=== PATIENT | male | born 1990 | race Caucasian/White ===

== ENCOUNTER 2024-09-29 15:37 | Emergency (ER) | payer OTHER, SELFPAY ==
--- NOTE | ~2024-09-29 | XR_ITS ---
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 RESULT: Lines, tubes, and devices: None. Lungs and pleura: Clear. Cardiomediastinal silhouette: Normal. Other: No acute osseous or upper abdominal finding. IMPRESSION: No acute cardiopulmonary process. Reviewed, dictated and finalized at location K. ARATION ROOM WORKER
--- NOTE | ~2024-09-29 | CT_ITS ---
EXAMINATION: CT brain wo con DATE: 09/29/2024 17:21 INDICATION: New headache . TECHNIQUE: Computed tomography (CT) of the head was performed without intravenous contrast. The mA wa s adjusted according to patient size. Iterative reconstruction technique was employed. The dose-lengt h product was 605.33 mGy-cm. COMPARISON: None. FINDINGS: No acute intracranial hemorrhage or extra-axial fluid collection. No hydrocephalus, mass, or herniation. No acute ischemic infarct. Unremarkable dural venous sinus attenuation. No acute osseous abnormality. The aerated spaces are clear. IMPRESSION: No acute intracranial process. Reviewed, dictated and finalized at location K. WARE SUPPORT TECHNICIAN
[2024-09-29 15:46] VITALS: BP 150/103; PULSE 105; RESP 19; TEMP 36.6; O2SAT 99
[2024-09-29 15:51] VITALS: O2SAT 97
[2024-09-29 15:53] VITALS: BP 154/95; PULSE 92; RESP 10; O2SAT 95
--- NOTE | 2024-09-29 15:55 | ECG_ITS ---
Test Date: 2024-09-29 16:07:51 Measurements Intervals [place] Rate: 73 P: 64 SD: 157 QRS: 49 QRSD: 86 T: 59 QT: 362 QTc: 401 Interpretive Statements SINUS RHYTHM WITH SINUS ARRHYTHMIA No previous ECG available for comparison Electronically Signed On 09-30-2024 09:57:31 STAFF REPORTER by Dwayne Correia M.D.
[2024-09-29 16:42] LABS: Basophils Absolute Auto 0.1 K/mm3 (0.0-0.1); Basophils Percent Auto 0.6 % (0.2-1.2); Eosinophils Absolute Auto 0.2 K/mm3 (0-0.3); Eosinophils Percent Auto 1.9 % (0-4.4); Hematocrit 39.1 % (42.0-52.0); Hemoglobin 13.4 g/dL (14.0-18.0); Immature Granulocyte Absolute 0.03 K/mm3 (0.00-0.031); Immature Granulocyte Percent A 0.3 % (0-0.5); Lymphocytes Absolute Auto 3.79 K/mm3 (0.9-3.2); Mean Corpuscular HGB Conc 34.3 g/dl (32-36); Mean Corpuscular Hemoglobin 30.2 pg (26-34); Mean Corpuscular Volume 88.3 fl (80-100); Mean Platelet Volume 9.9 fl (7.4-10.4); Monocytes Percent Auto 10.8 % (2.6-8.5); Neutrophils Absolute Auto 3.8 K/mm3 (1.3-6.7); Neutrophils Percent Auto 43.4 % (45.5-73.1); Platelet Count Result 307 k/mm3 (150-375); Red Blood Count 4.43 M/mm3 (4.6-6.20); Red Cell Distribution Width 13.5 % (11.5-14.5); White Blood Count 8.8 K/mm3 (4.5-10.0)
[2024-09-29 16:45] LABS: Influenza A QL RT-PCR Negative (Negative); Influenza B QL RT-PCR Negative (Negative); RSV RNA, RT-PCR Negative (Negative); SARS-CoV-2 RNA PCR Negative (Negative)
[2024-09-29 16:47] LABS: Alanine Aminotransferase 20 U/L (6-50); Albumin Level 4.5 g/dL (3.5-5.1); Alkaline Phosphatase 52 U/L (38-126); Anion Gap 10 mmol/L (4-12); Aspartate Amino Transferase 36 U/L (17-59); Bilirubin,Total 0.4 mg/dL (0.2-1.3); Blood Urea Nitrogen 14 mg/dL (9-20); Calcium 9.6 mg/dL (8.4-10.2); Carbon Dioxide 28 mmol/L (22-30); Chloride 102 mmol/L (98-107); Estimated CRCL calculation 94 ml/min; Estimated Glomerular Filt Rate > 60; Glucose 95 mg/dL (65-110); Sodium 140 mmol/L (137-145)
[2024-09-29] MEDS: hydrOXYzine HCL 25 MG TABLET 50 MG PO (17:27)
[2024-09-29 18:13] LABS: Free T4 Free Thyroxine Reflex 1.24 ng/dL (0.78-2.19)
[2024-09-29 18:23] VITALS: BP 154/95; PULSE 64; RESP 10; O2SAT 98
[2024-09-29 18:41] LABS: T4 Thyroxine 9.17 ug/dL (5.53-11.0)
[2024-09-29] MEDS: KETOROLAC 30 MG/ML VIAL (*BKC) IV PUSH (18:54)
[2024-09-29] MEDS: diphenhydrAMINE HCl INJ 50 MG/ML VIAL 25 MG IV PUSH ×2 (18:54→19:03)
[2024-09-29] MEDS: SODIUM CHLORIDE 0.9% IV 1,000 ML 999 ML IV CONT (18:54)
[2024-09-29] MEDS: PROCHLORPERAZINE EDISYLATE 10 MG/2 ML VIAL IV PUSH (18:55)
[2024-09-29 18:58] VITALS: BP 128/84; PULSE 77; PULSE 87; RESP 14; O2SAT 98
[2024-09-29 19:21] LABS: Total Triiodothyronine (T3) 1.24 NG/ML (0.97-1.69)
--- NOTE | 2024-09-29 19:27 | ED_ITS ---
HPI - SOB/Dyspnea General Chief Complaint: Shortness of Breath/Dyspnea Stated Complaint: dyspnea, pressure in head Time Seen by Provider: 09/29/24 16:08 Source: patient Mode of arrival: ambulatory Limitations: no limitations History of Present Illness HPI Narrative: This is a 34-year-old male, with no significant past medical history, presented to the emergency department complaining of headache, and anxiety for the past month. He states this has gradually worsened over the past 4-5 days. He describes the pain as pressure-like, global without associated weakness, numbness, change /loss of vision or hearing. He denies any known aggravating or alleviating factors. He has no other complaints at this time. Related Data Allergies Allergy/AdvReac Type Severity Reaction Status Date / Time No Known Allergies Allergy Verified 09/29/24 17:26 Review of Systems 2 Review of Systems: All systems reviewed & are unremarkable except as noted in HPI and below PMFSH Past Medical History Medical History No significant past medical history Surgical History Surgical History No significant past surgical history Family History Family History Grandparent Hypertension Family history of elevated blood lipids Family history of malignant neoplasm Family history of lymphoma Father Family history of attention deficit hyperactivity disorder (ADHD) Social History Social History Smoking status: Never smoker Alcohol intake: never Substance use: never Exam 2 Narrative: GENERAL: Well-developed, well-nourished, Appears anxious HEAD: Normocephalic, atraumatic. EYES: PERRLA and EOMI. ENT: Nares clear, no rhinorrhea or epistaxis. Mucous membranes moist. Oropharynx without tonsillar hypertrophy exudate or other lesions. Bilateral TMs pearly ruff nonbulging NECK: Supple. No adenopathy or masses. no thyroid mass. CHEST: Clear to auscultation. No respiratory distress. No wheezes rales or rhonchi HEART: Regular rate and rhythm. No murmur heard. Normal peripheral pulses. ABDOMEN: Soft, nontender, nondistended, normal active bowel sounds. EXTREMITIES: Normal range of motion. No edema. SKIN: Warm, dry, no rash. NEURO: Alert and oriented x3. No focal deficit. Strength 5/5 in all extremities, sensation intact bilaterally, no noted ataxia, cranial nerves 2-12 intact. Fine tremor is noted PSYCH: anxious mood and affect. Course Course Emergency Course: 19:30 - CBC demonstrates mild anemia with hemoglobin of 13.4 but is otherwise unremarkable. Chemistries within normal limits. TSH elevated at 6.3 though free T4, T4 and free T3 are within normal limits. The patient tested negative for COVID, influenza and RSV. EKG unremarkable. Chest x-ray not concerning for acute cardiopulmonary process. CT head not concerning for acute intracranial process. The patient was given Atarax, Toradol, Compazine and Benadryl with initial improvement of anxiety, though mild aggravation by Compazine. This improved with a total of 50 mg diphenhydramine. I suspect subclinical hypothyroidism, anxiety and headache is the cause of the patient's symptoms. Will discharge with Atarax, nausea medications and recommendation for primary care follow-up. I discussed the findings and recommendations with The patient. Discussed return and emergency precautions including signs/symptoms of focal neural deficit and intracranial hemorrhage. The patient voiced understanding and agreement with the plan. All questions answered to his satisfaction. Vital Signs Vital signs: Vital Signs Temperature 97.8 F 09/29/24 15:46 Pulse Rate 105 H 09/29/24 15:46 Respiratory Rate 19 09/29/24 15:46 Blood Pressure 150/103 H 09/29/24 15:46 Pulse Oximetry 99 09/29/24 15:46 Oxygen Delivery Room Air 09/29/24 15:46 Temperature 97.8 F 09/29/24 15:46 Pulse Rate 87 09/29/24 18:58 Respiratory Rate 14 09/29/24 18:58 Blood Pressure 128/84 09/29/24 18:58 Pulse Oximetry 98 09/29/24 18:58 Oxygen Delivery Room Air 09/29/24 18:58 MDM - SOB/Dyspnea MDM Narrative Medical decision making narrative: plan: Imaging, EKG, angiolytics, pain control, labs, reassess Differential Diagnosis Differential diagnosis: Likely other ( intracranial hemorrhage, intracranial mass, anxiety, COVID, pneumonia, influenza, hypothyroidism, hyperthyroidism, metabolic abnormality, other) Lab Data 09/29/24 16:04 09/29/24 16:04 Labs: Lab Results 09/29/24 Range/Units 16:04 WBC 8.8 (4.5-10.0) K/mm3 RBC 4.43 L (4.6-6.20) M/mm3 Hgb 13.4 L (14.0-18.0) g/dL Hct 39.1 L (42.0-52.0) % MCV 88.3 (80-100) fl MCH 30.2 (26-34) pg MCHC 34.3 (32-36) g/dl RDW 13.5 (11.5-14.5) % Plt Count 307 (150-375) k/mm3 MPV 9.9 (7.4-10.4) fl Immature Gran % (Auto) 0.3 (0-0.5) % Neut % (Auto) 43.4 L (45.5-73.1) % Lymph % (Auto) 43.0 (18.3-44.2) % [place] % (Auto) 10.8 H (2.6-8.5) % Eos % (Auto) 1.9 (0-4.4) % Baso % (Auto) 0.6 (0.2-1.2) % Lymph # (Auto) 3.79 H (0.9-3.2) K/mm3 [place] # (Auto) 1.0 H (0.1-0.6) K/mm3 Eos # (Auto) 0.2 (0-0.3) K/mm3 Baso # (Auto) 0.1 (0.0-0.1) K/mm3 Abs Immat Gran (auto) 0.03 (0.00-0.031) K/mm3 Absolute Neuts (auto) 3.8 (1.3-6.7) K/mm3 Absolute Nucleated RBC 0.000 (0.0-0.012) K/mm3 Nucleated RBC % 0.0 (0.0-0.2) % Sodium 140 (137-145) mmol/L Potassium 4.0 (3.4-5.0) mmol/L Chloride 102 (98-107) mmol/L Carbon Dioxide 28 (22-30) mmol/L Anion Gap 10 (4-12) mmol/L BUN 14 (9-20) mg/dL Creatinine 1.02 (0.7-1.3) mg/dL Estim Creat Clear Calc 94 ml/min Estimated GFR > 60 (59 - ) Glucose 95 (65-110) mg/dL Calcium 9.6 (8.4-10.2) mg/dL Total Bilirubin 0.4 (0.2-1.3) mg/dL AST 36 (17-59) U/L ALT 20 (6-50) U/L Alkaline Phosphatase 52 (38-126) U/L Total Protein 8.0 (6.3-8.2) g/dL Albumin 4.5 (3.5-5.1) g/dL TSH (Reflex) 6.310 H (0.465-4.68) uIU/mL Free T4 1.24 (0.78-2.19) ng/dL Thyroxine (T4) 9.17 (5.53-11.0) ug/dL Total T3 1.24 (0.97-1.69) NG/ML Influenza A (RT-PCR) Negative (Negative) Influenza B (RT-PCR) Negative (Negative) RSV (RT-PCR) Negative (Negative) SARS-CoV-2 RNA (RT-PCR) Negative (Negative) ECG Data EKG #1: Attestation: I personally reviewed and interpreted this ECG as follows: ECG completion date: 09/29/24 ECG completion time: 16:07 Prior ECG tracings: not available for review Interpretation: sinus rhythm, rate 73, normal axis, no ST segment elevations or T-wave inversions concerning for ischemia, normal intervals with QTC of 401. Discharge Plan Discharge Clinical Impression: Anxiety Hypothyroidism Qualifiers: Hypothyroidism type: other Qualified Code(s): E03.8 - Other specified hypothyroidism Headache Qualifiers: Headache type: unspecified Headache chronicity pattern: acute headache I ntractability: not intractable Qualified Code(s): R51.9 - Headache, unspecified Patient Disposition: Home, Self-Care Condition: Stable Instructions: Antibiotic Form, Acute Headache (ED), Anxiety (ED) Additional Instructions: You were seen in the emergency department. A CT scan of the head was not concerning for bleeding or mass of the brain. Your labs were not concerning for liver or kidney injury. Your TSH is slightly elevated at 6.3 though your T4 and T3 is normal. I recommend following up your primary care doctor for further investigation for hypothyroidism. If you develop weakness/numbness, change/loss of vision/hearing, or if you have other emergent concerns for life, limb, or eyesight, return to the emergency department. Patient Language: Frisian Prescriptions: New hydroxyzine HCl 50 mg tablet 50 mg PO TID PRN (Reason: anxiety) Qty: 30 0RF ondansetron 4 mg tablet,disintegrating 4 mg PO Q8H PRN (Reason: nausea and vomiting) Qty: 12 0RF Follow-up/Referrals: PHYSICIAN NOT ON STAFF,NONSTAFF [Primary Care Provider] - 2 Weeks Time of Disposition: 19:30
--- OUTSIDE RECORDS SUMMARY | 2024-10-04 09:11 | XMS_ITS | Clinical Summary ---
Author Organization [facility] Address [address] [place] [address]. [place], [place] [id number] [place] [id number] Care Team Providers Care Director Social Name Role Phone Unavailable Primary Care Provider Unavailabl e Social History Tobacco Use Types Packs/Day Years Used Date Smoking Tobacco: Never Assessed Sex and Gender Information Value Date Recorded Sex Assigned at Not on file Legal Sex Male 7:41 PM CDT Gender Identity Not on file Sexual Orientation Not on file Plan of Treatment Health Maintenance Due Date Last Done Comments Annual Physical 02/14/1991 Hepatitis C 02/14/2006 DTaP, Tdap and Td Vaccines ( 1 - Tdap) 02/14/2007 Hepatitis B Vaccines (1 of 3 - 19+ 3-dose series) 02/14/2007 COVID-19 Vaccine (2023-2 5 season) 2024 Influenza Adult (#1) 2024 HPV Vaccines Aged Out No longer eligi ble based on patient's age to complete this topic Meningococcal Vaccine Aged Out No danielle get eligible based on patient's age to complete this topic Pneumococcal Vaccine: Pediat rics (0 to 5 Years) and At-Risk Patients (6 to 64 Years) Aged Out No longer eligible b ased on patient's age to complete this topic RSV Immunizations Under 20 Months Aged Out No longer eligible based on patient's age to complete this topic
== END 2024-09-29 20:02 | disposition home or self-care (01) ==
PROVIDERS: Emergency Provider Preventive Medicine Aerospace Medicine
DX: R51.9 Headache, unspecified (principal); F41.9 Anxiety disorder, unspecified; E03.8 Other specified hypothyroidism; Z20.822 Contact with and (suspected) exposure to COVID-19
CPT/HCPCS: 36415; 70450; 71046; 80053; 84436; 84439; 84443; 84480; 85025; 87637; 93005; 96361; 96374; 96375; 99284; A9270; J0780; J1200; J1885; J7030

== ENCOUNTER 2025-04-24 18:47 | Observation (INO) | payer OTHER, SELFPAY ==
[2025-04-24] VITALS (20 sets, daily range): BP systolic 141–151; BP diastolic 89–101; PULSE 97–133; RESP 11–29; TEMP 36.3; O2SAT 96–98
--- NOTE | ~2025-04-24 | XR_ITS ---
CHEST RADIOGRAPH, PA AND LATERAL CLINICAL HISTORY: cp . COMPARISON: 09/29/2024 TECHNIQUE: PA and lateral views of the chest. FINDINGS The cardiomediastinal silhouette is unremarkable. The lungs are clear. IMPRESSION: No focal infiltrate or effusion. Reviewed, dictated and finalized at location A.
--- OUTSIDE RECORDS SUMMARY | 2025-04-24 18:49 | XMS_ITS | Clinical Summary ---
Author Organization [facility] Address [address] [place] [id number] Care Team Providers Care Insurance Professional Name Role Phone Unavailable Primary Care Provider [...] of 3 - 19+ 3-dose series) 02/14/2007 HPV Vaccines (1 - 3-dose SCD M series) 02/14/2015 COVID-19 Vaccine ( - 2023-2 5 season) 2024 Meningococcal B Vaccine Aged Out No l onger eligible based on patient's age to complete this topic Meningococcal Vaccine Aged Out No danielle get eligible based on patient's age to complete this topic Pneumococcal Vaccine: Pediat rics (0 to 5 Years) and At-Risk Patients (6 to 49 Years) Aged Out No longer eligible b ased on patient's age to complete this topic RSV Immunizations Under 20 Months Aged Out No longer eligible based on patient's age to complete this topic
--- NOTE | 2025-04-24 18:51 | ECG_ITS ---
Test Date: 2025-04-24 18:55:54 Measurements Intervals [place] Rate: 117 P: 66 [place]: 151 QRS: 58 QRSD: 86 T: 69 QT: 341 QTc: 477 Interpretive Statements SINUS TACHYCARDIA NONSPECIFIC ST & T-WAVE ABNORMALITY- DIFFUSE LEADS BASELINE ARTIFACT- I, II, III, AVR, AVL, AVF, V1-V6 ABNORMAL ECG Compared to ECG 09/29/2024 16:07:51 HEART RATE HAS INCREASED Electronically Signed On 04-24-2025 18:56:50 CDT by Gianfranco Vargas D.O.
--- NOTE | 2025-04-24 19:00 | ED.CHESTPAIN ---
HPI - Chest Pain General Chief Complaint: Chest Pain <Karla Perry APRN - Last Filed: 04/24/25 19:03> Stated Complaint: chest pain <Karla Perry APRN - Last Filed: 04/24/25 19:03> Time Seen by Provider: 04/24/25 19:00 <Karla Perry APRN - Last Filed: 04/24/25 19:03> Focused HPI: Pt is a 35-year-old male who presents to the ER with complaints of chest pain. He reports his pain started a while ago, but it has been worsening. Patient reports he has been unable to sleep for the past 5 days. He endorses a history of arrhythmias, bigeminy, anxiety, depression, and drug abuse. Patient reports he takes methadone every day. He also endorses shortness of breath. Patient denies back pain, recent fevers, abdominal pain or urinary symptoms. He denies any alcohol or illicit drug use. GENERAL: Ill-appearing, well-nourished, and in acute distress. HEAD: Normocephalic, atraumatic. CHEST: Clear to auscultation. ?No respiratory distress. HEART: Tachycardia, pallor. NEURO: ?Alert and oriented x3. Patient screened in triage and initial orders placed.? ?Additional care and disposition to be based upon?diagnostic testing and treatment. <Karla Perry APRN - Last Filed: 04/24/25 19:03> History of Present Illness HPI narrative: Agree with the HPI above and would like that collateral formation that patient is on chronic benzodiazepine therapy 2 mg clonazepam several times a day but has been out of this medication for numerous days prior to his symptom onset. Symptoms sound consistent with benzodiazepine washout or withdrawal. Does not endorse any alcohol use or history of alcohol withdrawal or feeling like this in the past. <Brady Sarkar MD - Last Filed: 04/25/25 06:41> Related Data Home Medications: Home Medications ?Medication ?Instructions ?Recorded ?Confirmed ?Last Taken ?Type clonazepam 1 mg tablet 1 mg PO Q12H 04/25/25 04/25/25 Unknown History escitalopram oxalate 10 mg tablet 10 mg PO DAILY 04/25/25 04/25/25 Unknown History methadone 10 mg/5 mL oral solution 100 mg PO DAILY 04/25/25 04/25/25 04/24/25 History metoprolol tartrate 25 mg tablet 25 mg PO Q12H 04/25/25 04/25/25 Unknown History <Karla Perry APRN - Last Filed: 04/24/25 19:03> Allergies/Adverse Reactions: Allergies Allergy/AdvReac Type Severity Reaction Status Date / Time diphenhydramine (From AdvReac Palpitation Verified 04/24/25 18:50 Benadryl) s <Karla Perry APRN - Last Filed: 04/24/25 19:03> Review of Systems Review of Systems: As reviewed above in HPI <Brady Sarkar MD - Last Filed: 04/25/25 06:41> PMFSH Past Medical History Medical History: Medical History No significant past medical history <Karla Perry APRN - Last Filed: 04/24/25 19:03> Surgical History Surgical History: Surgical History No significant past surgical history <Karla Perry APRN - Last Filed: 04/24/25 19:03> Family History Family History: Family History Grandparent Hypertension Family history of elevated blood lipids Family history of malignant neoplasm Family history of lymphoma Father Family history of attention deficit hyperactivity disorder (ADHD) <Karla Perry APRN - Last Filed: 04/24/25 19:03> Social History Social History: Social History Smoking status: Never smoker Alcohol intake: never Substance use: former Substance use type: former substance user, heroin, opiates, painkillers and IV drugs Lack of Transportation: No Lack of Food: Never True Current Housing: I Have Housing Concerned About Future Housing: No Difficulty Paying Gas/Electric Bills: No Difficulty Paying for Meds: No Currently Unemployed: No Education: Associate Degree Difficulty w/ Childcare or Family Care: No Spiritual care concerns: Yes <Karla Perry APRN - Last Filed: 04/24/25 19:03> Exam Narrative: GENERAL: Ill-appearing, tremulous and visibly shaking, tachycardic and tachypneic HEAD: [Normocephalic, atraumatic.] EYES: [PERRLA and EOMI.] ENT: Nares clear, no rhinorrhea or epistaxis. Mucous membranes moist. NECK: Supple. CHEST: Clear to auscultation, mildly tachypneic but converses in full sentences HEART: Tachycardic rate but regular rhythm. No murmur heard. [Normal peripheral pulses.] ABDOMEN: [Soft, nondistended], [nontender], [No rigidity or guarding] EXTREMITIES: Normal range of motion. [No edema.] SKIN: Warm, dry, no rash. NEURO: [No focal deficits]. Alert and oriented [x3.] PSYCH: [Normal mood and affect.] <Brady Sarkar MD - Last Filed: 04/25/25 06:41> Course Vital Signs Vital signs: Vital Signs Temperature 36.3 C L 04/24/25 18:47 Pulse Rate 112 H 04/24/25 18:47 Respiratory Rate 16 04/24/25 18:47 Blood Pressure 150/101 H 04/24/25 18:47 Pulse Oximetry 97 04/24/25 18:47 Temperature 36.1 C L 04/25/25 05:12 Pulse Rate 107 H 04/25/25 05:12 Respiratory Rate 14 04/25/25 05:12 Blood Pressure 130/88 04/25/25 05:12 Pulse Oximetry 98 04/25/25 05:12 Oxygen Delivery Room Air 04/25/25 03:48 <Karla Perry APRN - Last Filed: 04/24/25 19:03> Vital Signs Temperature 36.3 C L 04/24/25 18:47 Pulse Rate 112 H 04/24/25 18:47 Respiratory Rate 16 04/24/25 18:47 Blood Pressure 150/101 H 04/24/25 18:47 Pulse Oximetry 97 04/24/25 18:47 Temperature 36.1 C L 04/25/25 05:12 Pulse Rate 107 H 08/14/25 05:12 Respiratory Rate 14 04/25/25 05:12 Blood Pressure 130/88 04/25/25 05:12 Pulse Oximetry 98 04/25/25 05:12 Oxygen Delivery Room Air 04/25/25 03:48 <Brady Sarkar MD - Last Filed: 04/25/25 06:41> MDM - Chest Pain MDM Narrative Medical decision making narrative: Pt is a 35-year-old male who presents to the ER with complaints of chest pain. He reports his pain started a while ago, but it has been worsening. Patient reports he has been unable to sleep for the past 5 days. He endorses a history of arrhythmias, bigeminy, anxiety, depression, and drug abuse. Patient reports he takes methadone every day. He also endorses shortness of breath. Patient denies back pain, recent fevers, abdominal pain or urinary symptoms. He denies any alcohol or illicit drug use. Patient presents with elevated blood pressure tachycardia and tachypnea with tremulousness and signs and symptoms consistent with benzodiazepine withdrawal. Patient states he is on chronic benzodiazepine therapy but has been out of it for several days as he lost his prescription and he tried calling his regular doctor get a refill but this was not able to be done. Patient denies any new medication changes otherwise. He is on daily methadone. Patient was given a trial dose of 2 mg of IV Ativan all his symptoms have resolved as well as improvement in vital signs. Hemodynamically stable. Cardiac workup underway which is unrevealing with negative troponins, EKG without any concerning findings, electrolytes are normal. Patient had a recurrence of his symptoms and had elevated blood pressure, heart rate and tachypnea and felt tremulous again visibly shaky and evaluation. He was given a 2nd dose of 2 mg of IV Ativan and had symptomatic improvement. Discussed the case with the hospitalist who recommended oral dose of his home medications as well for longer-acting affect and he was accepted to the hospital for symptomatic benzodiazepine washout and withdrawal symptoms. Patient and family comfortable with the plan and patient admitted to a monitored bed at this time. <Brady Sarkar MD - Last Filed: 04/25/25 06:41> Medical Records Data Attestation: I reviewed the patient's medical records. <Brady Sarkar MD - Last Filed: 04/25/25 06:41> Lab Data Attestation: I reviewed the patient's lab results. <Brady Sarkar MD - Last Filed: 04/25/25 06:41> Result diagrams: 04/24/25 19:38 04/24/25 19:38 <Karla Perry APRN - Last Filed: 04/24/25 19:03> Labs: Lab Results 04/24/25 04/24/25 04/24/25 Range/Units 19:38 19:46 22:13 WBC 10.9 H (4.5-10.0) K/mm3 RBC 4.62 (4.6-6.20) M/mm3 Hgb 13.5 L (14.0-18.0) g/dL Hct 40.0 L (42.0-52.0) % MCV 86.6 (80-100) fl MCH 29.2 (26-34) pg MCHC 33.8 (32-36) g/dl RDW 14.1 (11.5-14.5) % Plt Count 355 (150-375) k/mm3 MPV 9.8 (7.4-10.4) fl Immature Gran % (Auto) 0.4 (0-0.5) % Neut % (Auto) 81.5 H (45.5-73.1) % Lymph % (Auto) 13.8 L (18.3-44.2) % [place] % (Auto) 3.9 (2.6-8.5) % Eos % (Auto) 0.0 (0-4.4) % Baso % (Auto) 0.4 (0.2-1.2) % Lymph # (Auto) 1.51 (0.9-3.2) K/mm3 [place] # (Auto) 0.4 (0.1-0.6) K/mm3 Eos # (Auto) 0.0 (0-0.3) K/mm3 Baso # (Auto) 0.0 (0.0-0.1) K/mm3 Abs Immat Gran (auto) 0.04 H (0.00-0.031) K/mm3 Absolute Neuts (auto) 8.9 H (1.3-6.7) K/mm3 Absolute Nucleated RBC 0.000 (0.0-0.012) K/mm3 Nucleated RBC % 0.0 (0.0-0.2) % PT 14.4 (11.1-14.7) Seconds INR 1.1 APTT 29.6 (22.3-36.8) Seconds Sodium 135 L (137-145) mmol/L Potassium 3.7 (3.4-5.0) mmol/L Chloride 97 L (98-107) mmol/L Carbon Dioxide 21 L (22-30) mmol/L Anion Gap 17 H (4-12) mmol/L BUN 11 (9-20) mg/dL Creatinine 1.00 (0.7-1.3) mg/dL Estim Creat Clear Calc 95 ml/min Estimated GFR > 60 (59 - ) Glucose 132 H (65-110) mg/dL Calcium 9.8 (8.4-10.2) mg/dL Total Bilirubin 0.5 (0.2-1.3) mg/dL AST 30 (17-59) U/L ALT 30 (6-50) U/L Alkaline Phosphatase 56 (38-126) U/L Troponin I < 0.012 < 0.012 (0.000-0.034) ng/mL Total Protein 9.2 H (6.3-8.2) g/dL Albumin 5.2 H (3.5-5.1) g/dL Lipase 73 (23-300) U/L TSH (Reflex) 1.510 (0.465-4.68) uIU/mL Urine Color Yellow (Yellow) Urine Appearance Clear (Clear) Urine pH 5.5 (5.0-9.0) Ur Specific [place] 1.017 (1.001-1.035) Urine Protein Trace (Negative) mg/dL Urine Glucose (UA) Negative (Negative) mg/dL Urine Ketones 3+ H (Negative) mg/dL Ur Blood (Man) 1+ H (Negative) Urine Nitrate Negative (Negative) Urine Bilirubin Negative (Negative) Urine Urobilinogen 0.2 (<2.0) mg/dL Leukocyte Esterase Rfl Negative (Negative) SY/UL Urine RBC 0-2 (0-2) /hpf Urine WBC 0-5 (0-3) /hpf Ur Squamous Epith Cells None seen (Few) /hpf Urine Bacteria None seen /hpf Urine Casts 3-5 <Karlacourtney Perry, INFORMATION CLERK [employer] - Last Filed: 04/24/25 19:03> Lab Results 04/24/25 04/24/25 04/24/25 Range/Units 19:38 19:46 22:13 WBC 10.9 H (4.5-10.0) K/mm3 RBC 4.62 (4.6-6.20) M/mm3 Hgb 13.5 L (14.0-18.0) g/dL Hct 40.0 L (42.0-52.0) % MCV 86.6 (80-100) fl MCH 29.2 (26-34) pg MCHC 33.8 (32-36) g/dl RDW 14.1 (11.5-14.5) % Plt Count 355 (150-375) k/mm3 MPV 9.8 (7.4-10.4) fl Immature Gran % (Auto) 0.4 (0-0.5) % Neut % (Auto) 81.5 H (45.5-73.1) % Lymph % (Auto) 13.8 L (18.3-44.2) % [place] % (Auto) 3.9 (2.6-8.5) % Eos % (Auto) 0.0 (0-4.4) % Baso % (Auto) 0.4 (0.2-1.2) % Lymph # (Auto) 1.51 (0.9-3.2) K/mm3 [place] # (Auto) 0.4 (0.1-0.6) K/mm3 Eos # (Auto) 0.0 (0-0.3) K/mm3 Baso # (Auto) 0.0 (0.0-0.1) K/mm3 Abs Immat Gran (auto) 0.04 H (0.00-0.031) K/mm3 Absolute Neuts (auto) 8.9 H (1.3-6.7) K/mm3 Absolute Nucleated RBC 0.000 (0.0-0.012) K/mm3 Nucleated RBC % 0.0 (0.0-0.2) % PT 14.4 (11.1-14.7) Seconds INR 1.1 APTT 29.6 (22.3-36.8) Seconds Sodium 135 L (137-145) mmol/L Potassium 3.7 (3.4-5.0) mmol/L Chloride 97 L (98-107) mmol/L Carbon Dioxide 21 L (22-30) mmol/L Anion Gap 17 H (4-12) mmol/L BUN 11 (9-20) mg/dL Creatinine 1.00 (0.7-1.3) mg/dL Estim Creat Clear Calc 95 ml/min Estimated GFR > 60 (59 - ) Glucose 132 H (65-110) mg/dL Calcium 9.8 (8.4-10.2) mg/dL Total Bilirubin 0.5 (0.2-1.3) mg/dL AST 30 (17-59) U/L ALT 30 (6-50) U/L Alkaline Phosphatase 56 (38-126) U/L Troponin I < 0.012 < 0.012 (0.000-0.034) ng/mL Total Protein 9.2 H (6.3-8.2) g/dL Albumin 5.2 H (3.5-5.1) g/dL Lipase 73 (23-300) U/L TSH (Reflex) 1.510 (0.465-4.68) uIU/mL Urine Color Yellow (Yellow) Urine Appearance Clear (Clear) Urine pH 5.5 (5.0-9.0) Ur Specific [place] 1.017 (1.001-1.035) Urine Protein Trace (Negative) mg/dL Urine Glucose (UA) Negative (Negative) mg/dL Urine Ketones 3+ H (Negative) mg/dL Ur Blood (Man) 1+ H (Negative) Urine Nitrate Negative (Negative) Urine Bilirubin Negative (Negative) Urine Urobilinogen 0.2 (<2.0) mg/dL Leukocyte Esterase Rfl Negative (Negative) SY/UL Urine RBC 0-2 (0-2) /hpf Urine WBC 0-5 (0-3) /hpf Ur Squamous Epith Cells None seen (Few) /hpf Urine Bacteria None seen /hpf Urine Casts 3-5 <Brady Sarkar MD - Last Filed: 04/25/25 06:41> Imaging Data Attestation: I personally reviewed and interpreted this imaging study as follows: <Brady Sarkar MD - Last Filed: 04/25/25 06:41> My impression: Impressions Chest X-Ray 04/24/25 19:33 IMPRESSION: No focal infiltrate or effusion. <Brady Sarkar MD - Last Filed: 04/25/25 06:41> Critical Care Time Critical Care Time Critical Care Time: Yes <Brady Sarkar MD - Last Filed: 04/25/25 06:41> Total Critical Care Time: 35 <Brady Sarkar MD - Last Filed: 04/25/25 06:41> Discharge Plan Discharge Clinical Impression: Benzodiazepine withdrawal, Chest pain, Tremulousness <Karla Perry APRN - Last Filed: 04/24/25 19:03> Patient Disposition: Still a Patient <Karla Perry APRN - Last Filed: 04/24/25 19:03> Condition: Stable <Karla Perry APRN - Last Filed: 04/24/25 19:03>
[2025-04-24] MEDS: ASPIRIN 81 MG CHEWABLE TABLET 324 MG PO (19:47)
[2025-04-24 19:51] LABS: Hematocrit 40.0 % (42.0-52.0); Hemoglobin 13.5 g/dL (14.0-18.0); Immature Granulocyte Percent A 0.4 % (0-0.5); Lymphocytes Absolute Auto 1.51 K/mm3 (0.9-3.2); Mean Corpuscular HGB Conc 33.8 g/dl (32-36); Mean Corpuscular Hemoglobin 29.2 pg (26-34); Mean Corpuscular Volume 86.6 fl (80-100); Nucleated Red Blood Cells Absolute Auto 0.000 K/mm3 (0.0-0.012); Nucleated Red Blood Cells Perc 0.0 % (0.0-0.2); Platelet Count Result 355 k/mm3 (150-375); Red Blood Count 4.62 M/mm3 (4.6-6.20); White Blood Count 10.9 K/mm3 (4.5-10.0)
[2025-04-24 19:57] LABS: Add Urine Microscopic? YES; Appearance Urine Clear (Clear); Glucose Urine UA Negative (Negative); Leukocyte Esterase Ur Negative LEU/UL (Negative); Nitrate Urine Negative (Negative); Specific Grav Ur 1.017 (1.001-1.035)
[2025-04-24 19:58] LABS: Alanine Aminotransferase 30 U/L (6-50); Albumin Level 5.2 g/dL (3.5-5.1); Alkaline Phosphatase 56 U/L (38-126); Anion Gap 17 mmol/L (4-12); Aspartate Amino Transferase 30 U/L (17-59); Bilirubin,Total 0.5 mg/dL (0.2-1.3); Blood Urea Nitrogen 11 mg/dL (9-20); Calcium 9.8 mg/dL (8.4-10.2); Carbon Dioxide 21 mmol/L (22-30); Chloride 97 mmol/L (98-107); Estimated CRCL calculation 95 ml/min; Estimated Glomerular Filt Rate > 60; Glucose 132 mg/dL (65-110); Lipase 73 U/L (23-300); Potassium 3.7 mmol/L (3.4-5.0); Sodium 135 mmol/L (137-145); Total Protein 9.2 g/dL (6.3-8.2)
[2025-04-24 20:03] LABS: INR 1.1; Partial Thromboplastin Time 29.6 Seconds (22.3-36.8); Prothrombin Time 14.4 Seconds (11.1-14.7)
[2025-04-24 20:10] LABS: Troponin I < 0.012 ng/mL (0.000-0.034)
[2025-04-24 20:28] LABS: Thyroid Stimulating Hormone Reflex 1.510 uIU/mL (0.465-4.68)
--- OUTSIDE RECORDS SUMMARY | 2025-04-24 20:39 | XMS_ITS | Clinical Summary ---
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
[2025-04-24] MEDS: LORazepam INJ (*CRX) 2 MG/ML VIAL IV PUSH (20:43)
[2025-04-24] MEDS: LACTATED RINGERS 1,000 ML 999 ML IV CONT ×2 (20:43)
--- NOTE | 2025-04-24 21:30 | ECG_ITS ---
Test Date: 2025-04-24 22:16:01 Measurements Intervals [place] Rate: 100 P: 53 MO: 143 QRS: 43 QRSD: 90 T: 5 QT: 327 QTc: 423 Interpretive Statements SINUS TACHYCARDIA MINIMAL Q WAVES- INFERIOR LEADS BORDERLINE ST-T WAVE ABNORMALITY- DIFFUSE LEADS BASELINE ARTIFACT- I, III, AVR, AVL, AVF BORDERLINE ECG Compared to ECG 04/24/2025 18:55:54 HEART RATE HAS DECREASED Electronically Signed On 04-25-2025 06:05:39 CDT by Gianfranco Vargas D.O.
[2025-04-24 22:45] LABS: Troponin I < 0.012 ng/mL (0.000-0.034)
[2025-04-25] MEDS: LORazepam INJ (*CRX) 2 MG/ML VIAL IV PUSH (00:33)
--- NOTE | 2025-04-25 01:09 | P.HP_ITS ---
H&P: HPI History of Present Illness Date/Time: 04/25/25 01:09 [facility] Past Medical History Medical History No significant past medical history Surgical History Surgical History No significant past surgical history Family History Family History Grandparent Hypertension Family history of elevated blood lipids Family history of malignant neoplasm Family history of lymphoma Father Family history of attention deficit hyperactivity disorder (ADHD) Social History Social History Smoking status: Never smoker Alcohol intake: never Substance use: never Meds Home Medications and Allergies Home Medications ?Medication ?Instructions ?Recorded ?Confirmed ?Type hydroxyzine HCl 50 mg tablet 50 mg PO TID PRN anxiety #30 tabs 09/29/24 Rx ondansetron 4 mg disintegrating 4 mg PO Q8H PRN nausea and 09/29/24 Rx tablet vomiting #12 tabs Allergies Allergy/AdvReac Type Severity Reaction Status Date / Time diphenhydramine (From AdvReac Palpitation Verified 04/24/25 18:50 Benadryl) s Vital Signs Vital Signs - 24 hr 04/24/25 18:47 04/24/25 19:37 04/24/25 19:45 Temperature 36.3 C L Pulse Rate 112 H 103 H 119 H Respiratory Rate 16 12 18 Blood Pressure 150/101 H Pulse Oximetry 97 97 04/24/25 19:47 04/24/25 20:00 04/24/25 20:01 Temperature Pulse Rate 105 H 100 97 Respiratory Rate 14 16 12 Blood Pressure 144/98 H 147/89 H Pulse Oximetry 98 97 04/24/25 20:15 04/24/25 20:16 04/24/25 20:30 Temperature Pulse Rate 105 H 118 H 106 H Respiratory Rate 13 15 13 Blood Pressure 151/98 H 141/93 H Pulse Oximetry 96 97 97 04/24/25 20:31 04/24/25 20:45 04/24/25 20:46 Temperature Pulse Rate 100 116 H 106 H Respiratory Rate 12 11 L 12 Blood Pressure 143/101 H Pulse Oximetry 98 98 98 04/24/25 21:00 04/24/25 21:15 04/24/25 21:30 Temperature Pulse Rate 114 H 106 H 106 H Respiratory Rate 12 14 12 Blood Pressure Pulse Oximetry 97 97 97 04/24/25 21:45 04/24/25 22:01 04/24/25 22:03 Temperature Pulse Rate 108 H 133 H Respiratory Rate 15 29 H 14 Blood Pressure 146/93 H Pulse Oximetry 97 97 04/24/25 22:15 04/24/25 22:30 Temperature Pulse Rate Respiratory Rate 16 14 Blood Pressure Pulse Oximetry 96 97 H&P: Results Labs Labs: Short CBC 04/24/25 Range/Units 19:38 WBC 10.9 H (4.5-10.0) K/mm3 Hgb 13.5 L (14.0-18.0) g/dL Hct 40.0 L (42.0-52.0) % Plt Count 355 (150-375) k/mm3 BMP 04/24/25 19:38 Sodium 135 L Potassium 3.7 Chloride 97 L Carbon Dioxide 21 L BUN 11 Creatinine 1.00 Glucose 132 H Calcium 9.8 Cardiac Enzymes 04/24/25 04/24/25 Range/Units 19:38 22:13 Troponin I < 0.012 < 0.012 (0.000-0.034) ng/mL Liver Function 04/24/25 Range/Units 19:38 Total Bilirubin 0.5 (0.2-1.3) mg/dL AST 30 (17-59) U/L ALT 30 (6-50) U/L Alkaline Phosphatase 56 (38-126) U/L Albumin 5.2 H (3.5-5.1) g/dL Urine 04/24/25 Range/Units 19:46 Urine Color Yellow (Yellow) Urine Appearance Clear (Clear) Urine pH 5.5 (5.0-9.0) Ur Specific [place] 1.017 (1.001-1.035) Urine Protein Trace (Negative) mg/dL Urine Glucose (UA) Negative (Negative) mg/dL
[2025-04-25 02:07] LABS: Troponin I < 0.012 ng/mL (0.000-0.034)
[2025-04-25] MEDS: clonazePAM (*CRX) 0.5 MG TABLET 2 MG PO (03:27)
[2025-04-25 03:48] VITALS: BMI 28.0
[2025-04-25 04:00] VITALS: PULSE 76
[2025-04-25] MEDS: LACTATED RINGERS 1,000 ML 125 ML IV CONT (04:21)
--- NOTE | 2025-04-25 04:23 | ADMGEN ---
This patient, Isma Reid, was admitted to [facility] Surg Room 322-02. Patient/family oriented to hospital policies and general routines including ID bracelet, bed and alarms, visiting hours, pain management, procedures, bathroom and other care routines, personal items, smoking policy, room service/diet, and visiting hours. Information on how to activate the Rapid Response Team has been discussed. Patient/Family are encouraged to report perceived risks to care and to ask questions if they do not understand what they are told or what they should do.
[2025-04-25 05:12] VITALS: BP 130/88; PULSE 107; RESP 14; TEMP 36.1; O2SAT 98
[2025-04-25 07:22] LABS: Cannabinoid Screen Urine Negative (Negative)
--- NOTE | 2025-04-25 07:45 | PM.SD2 ---
Same Day Admit/Disch: HPI History of Present Illness Chief complaint: Symptomatic benzodiazepine washout Narrative: 35-year-old male admitted for anxiety. Patient reports he has been unable to sleep for the past 5 days. He endorses a history of arrhythmias, bigeminy, anxiety, depression, and drug abuse. Patient reports he takes methadone every day, his dose was recently increased to 100 mg a day. He also endorses shortness of breath. He had been out of clonazepam for a bit and cannot get new RX until his PCP is back in 10 mg. Patient denies back pain, recent fevers, abdominal pain or urinary symptoms. He denies any alcohol or illicit drug use. IN ED: Patient was given a trial dose of 2 mg of IV Ativan all his symptoms have resolved as well as improvement in vital signs. Hemodynamically stable. Cardiac workup- negative troponins, EKG without any concerning findings, electrolytes are normal. Patient had a recurrence of his symptoms and had elevated blood pressure, heart rate and tachypnea and felt tremulous again visibly shaky and evaluation. He was given a 2nd dose of 2 mg of IV Ativan and overall improvement. [facility] Past Medical History Medical History No significant past medical history Surgical History Surgical History No significant past surgical history Family History Family History Grandparent Hypertension Family history of elevated blood lipids Family history of malignant neoplasm Family history of lymphoma Father Family history of attention deficit hyperactivity disorder (ADHD) Social History Social History Smoking status: Never smoker Alcohol intake: never Substance use: former Substance use type: former substance user, heroin, opiates, painkillers and IV drugs Lack of Transportation: No Lack of Food: Never True Current Housing: I Have Housing Concerned About Future Housing: No Difficulty Paying Gas/Electric Bills: No Difficulty Paying for Meds: No Currently Unemployed: No Education: Associate Degree Difficulty w/ Childcare or Family Care: No Spiritual care concerns: Yes Same Day Admit/Disch: Med Pre-admit Medications Home Medications ?Medication ?Instructions ?Recorded ?Confirmed ?Type clonazepam 1 mg tablet 1 mg PO Q12H #20 tabs 04/25/25 Rx escitalopram oxalate 10 mg tablet 10 mg PO DAILY 04/25/25 04/25/25 History methadone 10 mg/5 mL oral solution 100 mg PO DAILY 04/25/25 04/25/25 History metoprolol tartrate 25 mg tablet 25 mg PO Q12H 04/25/25 04/25/25 History Review of Systems Review of Systems All systems reviewed & are unremarkable except as noted in HPI and below Constitutional Constitutional: Reports as per HPI Exam Const: General: comfortable Resp: Effort & Inspection: normal respiratory effort Cardio: Rate: regular rate Rhythm: regular rhythm GI: GI Palp: Yes Soft to palpation Auscultation: normal bowel sounds Skin: General skin exam: normal color Neuro: Speech: normal speech Psych: Affect: Anxious affect present DS: Data Data Completed and Pending Completed studies during hospitalization: none Labs on day of discharge: Labs from last 24 hours 04/25/25 04/24/25 04/24/25 01:33 22:13 19:46 WBC RBC Hgb Hct MCV MCH MCHC RDW Plt Count MPV Immature Gran % (Auto) Neut % (Auto) Lymph % (Auto) [place] % (Auto) Eos % (Auto) Baso % (Auto) Lymph # (Auto) [place] # (Auto) Eos # (Auto) Baso # (Auto) Abs Immat Gran (auto) Absolute Neuts (auto) Absolute Nucleated RBC Nucleated RBC % PT INR APTT Sodium Potassium Chloride Carbon Dioxide Anion Gap BUN Creatinine Estim Creat Clear Calc Estimated GFR Glucose Calcium Total Bilirubin AST ALT Alkaline Phosphatase Troponin I < 0.012 < 0.012 Total Protein Albumin Lipase TSH (Reflex) Urine Color Yellow Urine Appearance Clear Urine pH 5.5 Ur Specific [place] 1.017 Urine Protein Trace Urine Glucose (UA) Negative Urine Ketones 3+ H Ur Blood (Man) 1+ H Urine Nitrate Negative Urine Bilirubin Negative Urine Urobilinogen 0.2 Leukocyte Esterase Rfl Negative Urine RBC 0-2 Urine WBC 0-5 Ur Squamous Epith Cells None seen Urine Bacteria None seen Urine Casts 3-5 Urine Opiates Screen Negative Urine Methadone Screen Positive A Ur Barbiturates Screen Negative Ur Phencyclidine Scrn Negative Ur Amphetamine Screen Negative U Benzodiazepines Scrn Negative Urine Cocaine Screen Negative U Cannabinoids Screen Negative 04/24/25 19:38 WBC 10.9 H RBC 4.62 Hgb 13.5 L Hct 40.0 L MCV 86.6 MCH 29.2 MCHC 33.8 RDW 14.1 Plt Count 355 MPV 9.8 Immature Gran % (Auto) 0.4 Neut % (Auto) 81.5 H Lymph % (Auto) 13.8 L [place] % (Auto) 3.9 Eos % (Auto) 0.0 Baso % (Auto) 0.4 Lymph # (Auto) 1.51 [place] # (Auto) 0.4 Eos # (Auto) 0.0 Baso # (Auto) 0.0 Abs Immat Gran (auto) 0.04 H Absolute Neuts (auto) 8.9 H Absolute Nucleated RBC 0.000 Nucleated RBC % 0.0 PT 14.4 INR 1.1 APTT 29.6 Sodium 135 L Potassium 3.7 Chloride 97 L Carbon Dioxide 21 L Anion Gap 17 H BUN 11 Creatinine 1.00 Estim Creat Clear Calc 95 Estimated GFR > 60 Glucose 132 H Calcium 9.8 Total Bilirubin 0.5 AST 30 ALT 30 Alkaline Phosphatase 56 Troponin I < 0.012 Total Protein 9.2 H Albumin 5.2 H Lipase 73 TSH (Reflex) 1.510 Urine Color Urine Appearance Urine pH Ur Specific [place] Urine Protein Urine Glucose (UA) Urine Ketones Ur Blood (Man) Urine Nitrate Urine Bilirubin Urine Urobilinogen Leukocyte Esterase Rfl Urine RBC Urine WBC Ur Squamous Epith Cells Urine Bacteria Urine Casts Urine Opiates Screen Urine Methadone Screen Ur Barbiturates Screen Ur Phencyclidine Scrn Ur Amphetamine Screen U Benzodiazepines Scrn Urine Cocaine Screen U Cannabinoids Screen DS: Summary Hospital Course Hospital Course: 35-year-old male admitted for anxiety. Patient reports he has been unable to sleep for the past 5 days. He endorses a history of arrhythmias, bigeminy, anxiety, depression, and drug abuse. Patient reports he takes methadone every day, his dose was recently increased to 100 mg a day. He also endorses shortness of breath. He had been out of clonazepam for a bit and cannot get new RX until his PCP is back in 10 mg. Patient denies back pain, recent fevers, abdominal pain or urinary symptoms. He denies any alcohol or illicit drug use. Attempted to call the clinic to clarify the dose, [facility] clinic at [phone]. Medical staff is not in clinic yet until 9 am, so unable to clarify the correct dose at this time. Pt received his clonazepam and feeling better, no chest pain, no sob, no n/v/d. Wants to leave to be able to go to clinic for the dose. Time Spent with Patient Time attestation: Total time spent providing and/or coordinating discharge services: DS: Admitting Diagnosis Discharge Date 04/25 Admitting Diagnosis anxiety Discharge Plan Discharge Attending physician on discharge: Polly Orta Discharging Clinician: Joan Amador Patient Disposition: Home Activity: may shower Diet: regular Discharge Instructions: Please f/u with methadone clinic for your daily dose. Take medications as prescribed. Patient Instructions: Antibiotic Form Patient Language: Portuguese Stand Alone Forms: General Discharge Information Follow-up/Referrals: PHYSICIAN NOT ON STAFF,NONSTAFF [Primary Care Provider] - 1 Week Discharge Medications: Continued escitalopram oxalate 10 mg tablet 10 mg PO DAILY metoprolol tartrate 25 mg tablet 25 mg PO Q12H methadone 10 mg/5 mL solution 100 mg PO DAILY clonazepam 1 mg tablet 1 mg PO Q12H Qty: 20 0RF Date of admission: 04/25/25 00:58 Primary Care Provider: PHYSICIAN NOT ON STAFF,NONSTAFF Admitting Provider: Polly Orta Attending physician on admission: Polly Orta Condition: Stable Hospitalist MIPS Advance Care Plan I have confirmed that the patient's Advanced Care Plan is present, code status is documented, or surrogate decision maker is listed in patient medical record.: Yes Medication Reconciliation I have utilized all available resources to obtain, update and review the patients current medications (includes all prescriptions, OTC, herbals, cannabis, and nutritional supplements).: Yes Heart Failure (Exclusion) Patient has history of Heart Transplant or Left Ventricular Assistive Device?: No IF YES, STOP HERE Heart Failure (Qualifier) Patient has current or prior documentation of LVEF less than or equal to 40%, or mod/servere depressed LVSF?: No IF NO, STOP HERE
[2025-04-25 08:01] VITALS: PULSE 146
[2025-04-25] MEDS: ESCITALOPRAM OXALATE 10 MG TABLET PO (08:39)
[2025-04-25 08:40] VITALS: PULSE 117
[2025-04-25] MEDS: METOPROLOL TARTRATE 25 MG TABLET PO (08:40)
[2025-04-25] MEDS: clonazePAM (*CRX) 0.5 MG TABLET 1 MG PO (08:40)
== END 2025-04-25 09:10 | disposition home or self-care (01) ==
LOC: ANHED 04-25 00:57 → ANH3MEDSUR 04-25 02:43
PROVIDERS: Emergency Medicine; Registered Nurse; Admitting Provider Family Medicine; Emergency Provider Student in an Organized Health Care Education/Training Program; Visit Provider Family Medicine
DX: F41.9 Anxiety disorder, unspecified (principal); F13.230 Sedative, hypnotic or anxiolytic dependence with withdrawal, uncomplicated; R07.9 Chest pain, unspecified; R25.1 Tremor, unspecified; F11.20 Opioid dependence, uncomplicated
CPT/HCPCS: 36415; 71046; 80053; 80307; 81001; 83690; 84443; 84484; 85025; 85610; 85730; 93005; 96361; 96374; 96375; 96376; 99285; A9270; G0378; G0379; J2060; J7120

== ENCOUNTER 2025-05-22 17:58 | Emergency (ER) | payer OTHER, SELFPAY ==
[2025-05-22] VITALS (11 sets, daily range): BP systolic 115–131; BP diastolic 78–85; PULSE 73–113; RESP 10–16; TEMP 37; O2SAT 94–100
--- NOTE | ~2025-05-22 | XR_ITS ---
Examination: XR chest 2V Clinical History: cp Comparison: 04/24/2025 Technique: PA and Lateral Findings: Cardiomediastinal silhouette normal size and configuration. Lungs clear. No acute bony abnormality. IMPRESSION: 1. No acute cardiopulmonary findings. Reviewed, dictated and finalized at location R.
--- NOTE | 2025-05-22 18:27 | ED.GENADULT ---
HPI - General Adult General Chief complaint: Unspecified <Kentrell Bailey APRN - Last Filed: 05/22/25 18:29> Stated complaint: BENZO WITHDRAWALS X4D <Kentrell Bailey APRN - Last Filed: 05/22/25 18:29> Time Seen by Provider: 05/22/25 18:55 <Kentrell Bailey APRN - Last Filed: 05/22/25 18:29> Focused HPI: 35-year-old male presents to the ER complaining of clonazepam withdrawals. Patient patient reports he last took clonazepam 4 days ago. Patient believes he has either misplaced his medication or someone stole it in the house. Patient has a history of benzodiazepine withdrawals and opiate withdrawals. 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 Patient denies any alcohol use. Patient does report a history of anxiety and panic attacks and was prescribed clonazepam 4 years ago. Patient reports chest pain, tremors, anxiety, insomnia, loss of appetite. Patient denies any difficulty breathing, fevers, body aches, chills, abdominal pain vomiting, diarrhea, or any other symptoms. GENERAL: Well-appearing, well-nourished, and in no acute distress. Patient is tremoring and anxious appearing. HEAD: Normocephalic, atraumatic. CHEST: Clear to auscultation. ?No respiratory distress. HEART: Regular rate and rhythm.? NEURO: ?Alert and oriented x3. Patient screened in triage and initial orders placed.? ?Additional care and disposition to be based upon?diagnostic testing and treatment. <Kentrell Bailey APRN - Last Filed: 05/22/25 18:29> Related Data Home medications: Home Medications ?Medication ?Instructions ?Recorded ?Confirmed ?Last Taken ?Type escitalopram oxalate 10 mg tablet 10 mg PO DAILY 04/25/25 04/25/25 Unknown History methadone 10 mg/5 mL oral solution 100 mg PO DAILY 04/25/25 04/25/25 04/24/25 History metoprolol tartrate 25 mg tablet 25 mg PO Q12H 04/25/25 04/25/25 Unknown History <Kentrell Bailey APRN - Last Filed: 05/22/25 18:29> Allergies/adverse reactions: Allergies Allergy/AdvReac Type Severity Reaction Status Date / Time diphenhydramine (From AdvReac Palpitation Verified 05/22/25 17:59 Benadryl) s <Kentrell Bailey APRN - Last Filed: 05/22/25 18:29> Review of Systems Review of Systems: All systems reviewed & are unremarkable except as noted in HPI and below <Kelly Ovalle PA-C - Last Filed: 05/22/25 21:57> PMFSH Past Medical History Medical History: Medical History No significant past medical history <Kentrell Bailey APRN - Last Filed: 05/22/25 18:29> Surgical History Surgical History: Surgical History No significant past surgical history <Kentrell Bailey APRN - Last Filed: 05/22/25 18:29> Family History Family History: Family History Grandparent Hypertension Family history of elevated blood lipids Family history of malignant neoplasm Family history of lymphoma Father Family history of attention deficit hyperactivity disorder (ADHD) <Kentrell Bailey APRN - Last Filed: 05/22/25 18:29> Social History Social History: Social History (System 04/25/25 @ 11:49 by Krystina Koroma) Smoking status: Never smoker Alcohol intake: never Substance use: former Substance use type: former substance user, heroin, opiates, painkillers and IV drugs Lack of Transportation: No Lack of Food: Never True Current Housing: I Have Housing Concerned About Future Housing: No Difficulty Paying Gas/Electric Bills: No Difficulty Paying for Meds: No Currently Unemployed: No Education: Associate Degree Difficulty w/ Childcare or Family Care: No Gender identity (if verbalized by the patient): Male Spiritual care concerns: Yes <Kentrell Bailey APRN - Last Filed: 05/22/25 18:29> Exam Narrative: GENERAL: Well-appearing, well-nourished, and in no acute distress. HEAD: Normocephalic, atraumatic. EYES: EOMI. CHEST: Clear to auscultation. No respiratory distress. No wheezes rales or rhonchi HEART: Regular rate and rhythm. No murmur heard. Normal peripheral pulses. EXTREMITIES: Normal range of motion. No edema. SKIN: Warm, dry, no rash. NEURO: No focal deficits. Alert and oriented x3. PSYCH: Normal mood and affect <Kelly Ovalle PA-C - Last Filed: 05/22/25 21:57> Course Course Emergency Course: patient updated on his workup and agrees with plan of care <Kelly Ovalle PA-C - Last Filed: 05/22/25 21:57> Vital Signs Vital signs: Vital Signs Temperature 98.6 F 05/22/25 18:16 Pulse Rate 113 H 05/22/25 18:16 Respiratory Rate 16 05/22/25 18:16 Blood Pressure 131/85 05/22/25 18:16 Pulse Oximetry 100 05/22/25 18:16 Oxygen Delivery Room Air 05/22/25 18:16 Temperature 98.6 F 05/22/25 18:16 Pulse Rate 74 05/22/25 21:00 Respiratory Rate 11 L 05/22/25 21:00 Blood Pressure 126/78 05/22/25 20:46 Pulse Oximetry 94 05/22/25 21:00 Oxygen Delivery Room Air 05/22/25 18:16 <Kentrell Bailey APRN - Last Filed: 05/22/25 18:29> Vital Signs Temperature 98.6 F 05/22/25 18:16 Pulse Rate 113 H 05/22/25 18:16 Respiratory Rate 16 05/22/25 18:16 Blood Pressure 131/85 05/22/25 18:16 Pulse Oximetry 100 05/22/25 18:16 Oxygen Delivery Room Air 05/22/25 18:16 Temperature 98.6 F 05/22/25 18:16 Pulse Rate 74 05/22/25 21:00 Respiratory Rate 11 L 05/22/25 21:00 Blood Pressure 126/78 05/22/25 20:46 Pulse Oximetry 94 05/22/25 21:00 Oxygen Delivery Room Air 05/22/25 18:16 <Kelly Ovalle PA-C - Last Filed: 05/22/25 21:57> Medical Decision Making MDM Narrative Medical decision making narrative: Patient presents to the ER for symptoms due to benzodiazepine withdrawal. Reports he misplaced his prescription. Has taken clonazepam twice daily for years. Tachycardic upon arrival, this normalized after dose of clonazepam. CBC and metabolic panel without concerning findings. EKG is unchanged from previous, baseline troponin negative. Advised patient I can give him a short course of clonazepam until he is able to have follow-up with his PCP. He was given warnings to return to the ER <Kelly Ovalle PA-C - Last Filed: 05/22/25 21:57> Vital Signs Vital Signs: Vital Signs Temperature 98.6 F 05/22/25 18:16 Pulse Rate 113 H 05/22/25 18:16 Respiratory Rate 16 05/22/25 18:16 Blood Pressure 131/85 05/22/25 18:16 Pulse Oximetry 100 05/22/25 18:16 Oxygen Delivery Room Air 05/22/25 18:16 Temperature 98.6 F 05/22/25 18:16 Pulse Rate 74 05/22/25 21:00 Respiratory Rate 11 L 05/22/25 21:00 Blood Pressure 126/78 05/22/25 20:46 Pulse Oximetry 94 05/22/25 21:00 Oxygen Delivery Room Air 05/22/25 18:16 <Kentrell Bailey APRN - Last Filed: 05/22/25 18:29> Vital Signs Temperature 98.6 F 05/22/25 18:16 Pulse Rate 113 H 05/22/25 18:16 Respiratory Rate 16 05/22/25 18:16 Blood Pressure 131/85 05/22/25 18:16 Pulse Oximetry 100 05/22/25 18:16 Oxygen Delivery Room Air 05/22/25 18:16 Temperature 98.6 F 05/22/25 18:16 Pulse Rate 74 05/22/25 21:00 Respiratory Rate 11 L 05/22/25 21:00 Blood Pressure 126/78 05/22/25 20:46 Pulse Oximetry 94 05/22/25 21:00 Oxygen Delivery Room Air 05/22/25 18:16 <Kelly Ovalle PA-C - Last Filed: 05/22/25 21:57> Lab Data Lab results reviewed: Yes I reviewed the patient's lab results. <Kelly Ovalle PA-C - Last Filed: 05/22/25 21:57> Result diagrams: 05/22/25 19:25 05/22/25 19:25 <Kentrell Bailey APRN - Last Filed: 05/22/25 18:29> Labs: Lab Results 05/22/25 Range/Units 19:25 WBC 7.1 (4.5-10.0) K/mm3 RBC 4.49 L (4.6-6.20) M/mm3 Hgb 13.3 L (14.0-18.0) g/dL Hct 38.6 L (42.0-52.0) % MCV 86.0 (80-100) fl MCH 29.6 (26-34) pg MCHC 34.5 (32-36) g/dl RDW 13.3 (11.5-14.5) % Plt Count 283 (150-375) k/mm3 MPV 9.5 (7.4-10.4) fl Immature Gran % (Auto) 0.1 (0-0.5) % Neut % (Auto) 76.9 H (45.5-73.1) % Lymph % (Auto) 16.8 L (18.3-44.2) % [place] % (Auto) 5.6 (2.6-8.5) % Eos % (Auto) 0.0 (0-4.4) % Baso % (Auto) 0.6 (0.2-1.2) % Lymph # (Auto) 1.19 (0.9-3.2) K/mm3 [place] # (Auto) 0.4 (0.1-0.6) K/mm3 Eos # (Auto) 0.0 (0-0.3) K/mm3 Baso # (Auto) 0.0 (0.0-0.1) K/mm3 Abs Immat Gran (auto) 0.01 (0.00-0.031) K/mm3 Absolute Neuts (auto) 5.5 (1.3-6.7) K/mm3 Absolute Nucleated RBC 0.000 (0.0-0.012) K/mm3 Nucleated RBC % 0.0 (0.0-0.2) % PT 14.2 (11.1-14.7) Seconds INR 1.1 APTT 29.6 (22.3-36.8) Seconds Sodium 138 (137-145) mmol/L Potassium 4.0 (3.4-5.0) mmol/L Chloride 98 (98-107) mmol/L Carbon Dioxide 24 (22-30) mmol/L Anion Gap 16 H (4-12) mmol/L BUN 9 (9-20) mg/dL Creatinine 1.00 (0.7-1.3) mg/dL Estim Creat Clear Calc 92 ml/min Estimated GFR > 60 (59 - ) Glucose 111 H (65-110) mg/dL Calcium 9.9 (8.4-10.2) mg/dL Total Bilirubin 0.7 (0.2-1.3) mg/dL AST 37 (17-59) U/L ALT 29 (6-50) U/L Alkaline Phosphatase 55 (38-126) U/L Troponin I < 0.012 (0.000-0.034) ng/mL Total Protein 9.1 H (6.3-8.2) g/dL Albumin 5.3 H (3.5-5.1) g/dL Lipase 52 (23-300) U/L Urine Opiates Screen Negative (Negative) Urine Methadone Screen Positive A (Negative) Ur Barbiturates Screen Negative (Negative) Ur Phencyclidine Scrn Negative (Negative) Ur Amphetamine Screen Negative (Negative) U Benzodiazepines Scrn Positive A (Negative) Urine Cocaine Screen Negative (Negative) U Cannabinoids Screen Negative (Negative) <Kentrell Bailey, EARTH SCIENCES PROFESSOR - Last Filed: 05/22/25 18:29> Lab Results 05/22/25 Range/Units 19:25 WBC 7.1 (4.5-10.0) K/mm3 RBC 4.49 L (4.6-6.20) M/mm3 Hgb 13.3 L (14.0-18.0) g/dL Hct 38.6 L (42.0-52.0) % MCV 86.0 (80-100) fl MCH 29.6 (26-34) pg MCHC 34.5 (32-36) g/dl RDW 13.3 (11.5-14.5) % Plt Count 283 (150-375) k/mm3 MPV 9.5 (7.4-10.4) fl Immature Gran % (Auto) 0.1 (0-0.5) % Neut % (Auto) 76.9 H (45.5-73.1) % Lymph % (Auto) 16.8 L (18.3-44.2) % [place] % (Auto) 5.6 (2.6-8.5) % Eos % (Auto) 0.0 (0-4.4) % Baso % (Auto) 0.6 (0.2-1.2) % Lymph # (Auto) 1.19 (0.9-3.2) K/mm3 [place] # (Auto) 0.4 (0.1-0.6) K/mm3 Eos # (Auto) 0.0 (0-0.3) K/mm3 Baso # (Auto) 0.0 (0.0-0.1) K/mm3 Abs Immat Gran (auto) 0.01 (0.00-0.031) K/mm3 Absolute Neuts (auto) 5.5 (1.3-6.7) K/mm3 Absolute Nucleated RBC 0.000 (0.0-0.012) K/mm3 Nucleated RBC % 0.0 (0.0-0.2) % PT 14.2 (11.1-14.7) Seconds INR 1.1 APTT 29.6 (22.3-36.8) Seconds Sodium 138 (137-145) mmol/L Potassium 4.0 (3.4-5.0) mmol/L Chloride 98 (98-107) mmol/L Carbon Dioxide 24 (22-30) mmol/L Anion Gap 16 H (4-12) mmol/L BUN 9 (9-20) mg/dL Creatinine 1.00 (0.7-1.3) mg/dL Estim Creat Clear Calc 92 ml/min Estimated GFR > 60 (59 - ) Glucose 111 H (65-110) mg/dL Calcium 9.9 (8.4-10.2) mg/dL Total Bilirubin 0.7 (0.2-1.3) mg/dL AST 37 (17-59) U/L ALT 29 (6-50) U/L Alkaline Phosphatase 55 (38-126) U/L Troponin I < 0.012 (0.000-0.034) ng/mL Total Protein 9.1 H (6.3-8.2) g/dL Albumin 5.3 H (3.5-5.1) g/dL Lipase 52 (23-300) U/L Urine Opiates Screen Negative (Negative) Urine Methadone Screen Positive A (Negative) Ur Barbiturates Screen Negative (Negative) Ur Phencyclidine Scrn Negative (Negative) Ur Amphetamine Screen Negative (Negative) U Benzodiazepines Scrn Positive A (Negative) Urine Cocaine Screen Negative (Negative) U Cannabinoids Screen Negative (Negative) <Kelly Ovalle PA-C - Last Filed: 05/22/25 21:57> Imaging Data Radiologist's impression: ITS Impressions Chest X-Ray 05/22/25 18:37 IMPRESSION: 1. No acute cardiopulmonary findings. <POLLO Gardner Last Filed: 05/22/25 21:57> ECG Data EKG #1: ECG completion date: 05/22/25 <POLLO Gardner Last Filed: 05/22/25 21:57> EKG Interpretation: normal rate, sinus rhythm, normal QT and no acute changes (compared to EKG 04/2025) <Kelly Ovalle PA-C - Last Filed: 05/22/25 21:57> Critical Care Time Critical Care Time Critical Care Time: No <Kelly Ovalle PA-C - Last Filed: 05/22/25 21:57> Discharge Plan Discharge Clinical Impression: Benzodiazepine dependence <Kentrell Bailey APRN - Last Filed: 05/22/25 18:29> Patient Disposition: Home <DENNIS Smalls Last Filed: 05/22/25 18:29> Condition: Improved <DENNIS Smalls Last Filed: 05/22/25 18:29> Instructions: Clonazepam (By mouth) <Kentrell Bailey APRN - Last Filed: 05/22/25 18:29> Additional Instructions: Return to the emergency department if you experience fever, chest pain, shortness of breath, abdominal pain with nausea and vomiting, weakness, numbness, or any other symptoms that are concerning to you. Follow up with your primary care doctor <Kentrell Bailey APRN - Last Filed: 05/22/25 18:29> Patient Language: Turkish <Kentrell Bailey APRN - Last Filed: 05/22/25 18:29> Prescriptions: New clonazepam [Klonopin] 1 mg tablet 1 mg PO BID Qty: 7 0RF No Action omeprazole magnesium [Prilosec OTC] 20 mg tablet,delayed release (DR/EC) 20 mg PO DAILY Qty: 14 0RF hydroxyzine pamoate [Vistaril] 25 mg capsule 25 mg PO TID PRN (Reason: anxiety) Qty: 14 0RF escitalopram oxalate 10 mg tablet 10 mg PO DAILY metoprolol tartrate 25 mg tablet 25 mg PO Q12H methadone 10 mg/5 mL solution 100 mg PO DAILY clonazepam 1 mg tablet 1 mg PO Q12H Qty: 20 0RF <Kentrell Bailey APRN - Last Filed: 05/22/25 18:29> Follow-up/Referrals: Holly,Austyn Walker M.D. [Primary Care Provider] <Kentrell Bailey APRN - Last Filed: 05/22/25 18:29>
[2025-05-22] MEDS: clonazePAM (*CRX) 0.5 MG TABLET 1 MG PO (19:01)
--- NOTE | 2025-05-22 19:16 | PC.NURSE ---
Received report from IRVIN Holliday for cont. of care. Pt sitting on stretcher, respirations even and unlabored. Pt AOX4, with family at bedside and on cont. cardiac and pulse oximeter monitor. VS WNL
[2025-05-22 19:30] LABS: Hematocrit 38.6 % (42.0-52.0); Hemoglobin 13.3 g/dL (14.0-18.0); Immature Granulocyte Percent A 0.1 % (0-0.5); Lymphocytes Absolute Auto 1.19 K/mm3 (0.9-3.2); Mean Corpuscular HGB Conc 34.5 g/dl (32-36); Mean Corpuscular Hemoglobin 29.6 pg (26-34); Mean Corpuscular Volume 86.0 fl (80-100); Nucleated Red Blood Cells Absolute Auto 0.000 K/mm3 (0.0-0.012); Nucleated Red Blood Cells Perc 0.0 % (0.0-0.2); Platelet Count Result 283 k/mm3 (150-375); Red Blood Count 4.49 M/mm3 (4.6-6.20); White Blood Count 7.1 K/mm3 (4.5-10.0)
[2025-05-22 19:40] LABS: Alanine Aminotransferase 29 U/L (6-50); Albumin Level 5.3 g/dL (3.5-5.1); Alkaline Phosphatase 55 U/L (38-126); Anion Gap 16 mmol/L (4-12); Aspartate Amino Transferase 37 U/L (17-59); Bilirubin,Total 0.7 mg/dL (0.2-1.3); Blood Urea Nitrogen 9 mg/dL (9-20); Calcium 9.9 mg/dL (8.4-10.2); Carbon Dioxide 24 mmol/L (22-30); Chloride 98 mmol/L (98-107); Estimated CRCL calculation 92 ml/min; Estimated Glomerular Filt Rate > 60; Glucose 111 mg/dL (65-110); INR 1.1; Lipase 52 U/L (23-300); Potassium 4.0 mmol/L (3.4-5.0); Prothrombin Time 14.2 Seconds (11.1-14.7); Sodium 138 mmol/L (137-145); Total Protein 9.1 g/dL (6.3-8.2)
[2025-05-22 19:41] LABS: Partial Thromboplastin Time 29.6 Seconds (22.3-36.8)
[2025-05-22 19:53] LABS: Troponin I < 0.012 ng/mL (0.000-0.034)
[2025-05-22 20:02] LABS: Cannabinoid Screen Urine Negative (Negative)
--- NOTE | 2025-05-22 20:05 | ECG_ITS ---
Test Date: 2025-05-22 21:12:08 Measurements Intervals [place] Rate: 75 P: 49 NC: 160 QRS: 24 QRSD: 90 T: 28 QT: 392 QTc: 439 Interpretive Statements SINUS RHYTHM MODERATE T-WAVE ABNORMALITY, CONSIDER ANTERIOR ISCHEMIA [-0.1+ mV T WAVE IN V3/V4] Compared to ECG 04/24/2025 22:16:01 NO SIGNIFICANT CHANGES Electronically Signed On 05-23-2025 11:04:03 CDT by Bhupinder Jimenez M.D.
[2025-05-22 22:28] LABS: Troponin I < 0.012 ng/mL (0.000-0.034)
== END 2025-05-22 22:12 | disposition home or self-care (01) ==
PROVIDERS: Emergency Provider Physician Assistant; PCP Family Medicine
DX: F13.20 Sedative, hypnotic or anxiolytic dependence, uncomplicated (principal); R94.31 Abnormal electrocardiogram [ECG] [EKG]
CPT/HCPCS: 36415; 71046; 80053; 80307; 83690; 84484; 85025; 85610; 85730; 93005; 99284; A9270